=== PATIENT | male | born 1985 | race Caucasian/White ===

== ENCOUNTER 2023-12-22 17:19 | Emergency (ER) | payer BC, OTHER, SELFPAY ==
[2023-12-22 18:03] VITALS: BP 155/99; PULSE 81; RESP 16; TEMP 36.3; O2SAT 97; BMI 27.6
== END 2023-12-22 22:01 | disposition left against medical advice (07) ==
PROVIDERS: Emergency Provider Emergency Medicine
DX: M79.89 Other specified soft tissue disorders (principal); Z53.21 Procedure and treatment not carried out due to patient leaving prior to being seen by health care provider